=== PATIENT | female | born 1955 | race Asian ===

== ENCOUNTER 2016-09-13 09:44 | Inpatient (IN) | payer OTHER ==
[~2016-09-13] VITALS: Ht 152.4 cm; Wt 152.5 kg
[2016-09-13] MEDS ORDERED: SODIUM CHLORIDE 0.9% 1,000 ML IV ONE (10:07)
[2016-09-13] MEDS ORDERED: DILTIAZEM 5 MG/ML, 5ML ONE (10:16)
[2016-09-13] MEDS ORDERED: ASPIRIN 81 MG TABLET CHEW ONE (10:23)
[2016-09-13] MEDS ORDERED: DILTIAZEM 5 MG/ML, 5ML IV ONE (10:30)
[2016-09-13] MEDS ORDERED: DILTIAZEM 5 MG/ML, 5ML IVPush ONE ×2 (10:30→13:30)
[2016-09-13] MEDS ORDERED: SODIUM CHLORIDE FLUSH 10ML SYR IVF ONE (10:30)
[2016-09-13] MEDS ORDERED: SODIUM CHLORIDE 0.9% 1,000ML IVBOLUS ONE (10:30)
[2016-09-13] MEDS ORDERED: PLEASE ENTER ALLERGIES MC SCH ×2 (10:30)
[2016-09-13] MEDS ORDERED: ASPIRIN 81 MG TABLET CHEW PO ONE (10:30)
[2016-09-13 10:39] LABS: ASPARTATE AMINO TRANSFERASE 26 U/L (15-37); BLOOD UREA NITROGEN 17 mg/dL (7-18)
[2016-09-13 10:44] LABS: IS PT STATUS REG ER OR PRE ER? YES
[2016-09-13] MEDS ORDERED: PROPOFOL 10 MG/ML, 20ML IVP ONE (12:00)
[2016-09-13] MEDS ORDERED: PROPOFOL 10 MG/ML, 20ML ONE (12:05)
[2016-09-13] MEDS ORDERED: DILTIAZEM 125 MG in DEXTROSE 5% 100 ML IV SCH (13:20)
[2016-09-13] MEDS ORDERED: SODIUM CHLORIDE FLUSH 10ML SYR IVF PRN (13:30)
[2016-09-13] MEDS: AMIODARONE 150 MG in DEXTROSE 5% 100 ML IV ONE (13:30)
[2016-09-13] MEDS ORDERED: AMIODARONE 900 MG in DEXTROSE 5% 482 ML IV PRN (13:30)
[2016-09-13] MEDS ORDERED: ENOXAPARIN 60 MG/0.6 ML SQ ONE (13:30)
[2016-09-13] MEDS ORDERED: DILTIAZEM 5 MG/ML, 5ML IVPush PRN (14:00)
[2016-09-13] MEDS ORDERED: FILTER 0.22 MICRON IV PRN (17:00)
[2016-09-13] MEDS: ENOXAPARIN 60 MG/0.6 ML SQ SCH (17:58)
[2016-09-13 18:11] LABS: IS PT STATUS REG ER OR PRE ER? NO
[2016-09-13 19:52] VITALS: BP 155/75
[2016-09-13] MEDS: SODIUM CHLORIDE 0.9% 1,000 ML IV SCH (20:54)
[2016-09-14 03:05] VITALS: BP 138/79
[2016-09-14] MEDS: SODIUM CHLORIDE 0.9% 1,000 ML IV SCH ×2 (05:20→16:07)
[2016-09-14] MEDS: ENOXAPARIN 60 MG/0.6 ML SQ SCH (05:20)
[2016-09-14 07:44] VITALS: BP 165/77
[2016-09-14] MEDS: APIXABAN 5 MG TABLET PO SCH ×2 (10:41→19:42)
[2016-09-14] MEDS: AMIODARONE 200 MG TABLET PO SCH ×2 (10:42→19:42)
[2016-09-14 14:00] VITALS: BP_SYST 144; BP_SYST 162; BP_DIAS 84; BP_DIAS 89
[2016-09-14 19:36] VITALS: BP 163/83
[2016-09-14 23:35] VITALS: BP 157/82
[2016-09-15] MEDS: SODIUM CHLORIDE 0.9% 1,000 ML IV SCH (00:15)
[2016-09-15 01:27] VITALS: BP 153/87
[2016-09-15] MEDS: AMIODARONE 200 MG TABLET PO SCH (08:42)
[2016-09-15] MEDS: APIXABAN 5 MG TABLET PO SCH (08:42)
[2016-09-15 09:07] VITALS: BP 148/82
[2016-09-15] MEDS ORDERED: AMIO200T42 PO (09:17)
[2016-09-15] MEDS ORDERED: APIX5TAB PO (09:17)
== END 2016-09-15 11:25 | disposition home or self-care (01) | DRG 309 ==
LOC: ED 11:32 → EDIP 13:14 → 5SO 16:20 → DCLOUNGE 09-15 11:01
PROVIDERS: ADMIT Internal Medicine; ATTEND Internal Medicine
PROC: 5A2204Z Restoration of Cardiac Rhythm, Single (ICD-10-PCS; principal; 2016-09-13)
DX: I48.91 Unspecified atrial fibrillation (principal); D68.69 Other thrombophilia; E86.0 Dehydration; I10 Essential (primary) hypertension; I07.1 Rheumatic tricuspid insufficiency; Z87.891 Personal history of nicotine dependence; Z83.3 Family history of diabetes mellitus; Z82.49 Family history of ischemic heart disease and other diseases of the circulatory system
CPT/HCPCS: 36415; 71010; 80053; 83735; 83880; 84443; 84484; 85025; 85610; 85730; 92960; 93005; 93306; 96365; 96366; 96375; 96376; 99152; 99153; J1650; J0282; J7030; J7060